=== PATIENT | female | born 1970 | race Caucasian/White ===

== ENCOUNTER 2018-10-24 09:21 | Day surgery (SDC) | payer OTHER ==
[2018-10-24] VITALS (8 sets, daily range): BP systolic 107–124; BP diastolic 59–77; PULSE 70–90; RESP 14–19; Ht 157.5 cm; Wt 100.0 kg
[~2018-10-24] VITALS: Ht 157.5 cm; Wt 100.0 kg
[~2018-10-24 09:21] MED LIST: FERR-55 PO; LANT3I SC; LISI-313 PO; MELO15TA30 PO; METF850T13 PO; OMEP40CA6 PO
[2018-10-24] MEDS ORDERED: CEFAZOLIN 2 GM/50 ML (PMX) 50 ML IVPB ONE (10:00)
[2018-10-24] MEDS ORDERED: METF100010 PO (10:00)
[2018-10-24] MEDS ORDERED: GLIP5TAB13 PO (10:01)
[2018-10-24] MEDS ORDERED: INSU100I33 SC (10:01)
[2018-10-24] MEDS ORDERED: HYDR200T39 PO (10:02)
[2018-10-24] MEDS ORDERED: GABA300C16 PO (10:03)
[2018-10-24] MEDS ORDERED: FOLI-49 PO (10:04)
[2018-10-24] MEDS ORDERED: DULO30CA47 PO (10:04)
[2018-10-24] MEDS ORDERED: DOCU100T PO (10:04)
[2018-10-24] MEDS ORDERED: LISI10TA2 PO (10:05)
[2018-10-24] MEDS ORDERED: BUPIVACAINE 0.5% (SDV) 30 ML INJ ONE ×2 (11:14→11:51)
--- NOTE | 2018-10-24 11:27 | HPN ---
Date/Time of Note Date/Time of Note DATE: 10/24/18 TIME: 11:27 Interval H&P Admission Note Pt. seen H&P reviewed: No system changes IKER SUE DPM October 24, 2018 11:27
--- NOTE | 2018-10-24 11:33 | PREAC ---
Date/Time of Note Date/Time of Note DATE: 10/24/18 TIME: 11:30 Anesthesia Eval and Record Evaluation Time Pre-Procedure Interview DATE: 10/24/18 TIME: 11:30 Age 47 Sex female NPO: 8 hrs Preoperative diagnosis Bilat Ingroin nails Planned procedure Bilat partial nail avulsion Past Medical History Past Medical History: Includes Cardio: HTN, Dyslipidemia Endo: Diabetes GI: Morbid obesity Surgery & Anesthesia Issues No known issue Meds Anticoagulation: No Beta Maria [place] within 24 hr: No Reason Beta Maria Del Carmen not given: Pt. not on B-Maria Del Carmen Reported Medications Lisinopril* (Lisinopril*) 10 Mg Tablet, 10 MG PO DAILY, #30 TAB 10/24/18 Docusate Sodium* (Dok*) 100 Mg Tablet, 100 MG PO BID, #60 CAP 10/24/18 Folic Acid* (Folic Acid*) 1 Mg Tablet, 1 MG PO DAILY, TAB 10/24/18 Duloxetine Hcl* (Duloxetine Hcl*) 30 Mg Capsule.dr, 30 MG PO DAILY, #30 CAP 10/24/18 Gabapentin* (Gabapentin*) 300 Mg Capsule, 300 MG PO TID, #90 CAP 10/24/18 Hydroxychloroquine Sulfate* (Hydroxychloroquine Sulfate*) 200 Mg Tablet, 200 MG PO BID, TAB 10/24/18 Insulin Glargine,Hum.rec.anlog (Basaglar Kwikpen U-100) 100 Unit/1 Ml Insuln.pen, 35 UNIT SC QHS, EA 10/24/18 Glipizide* (Glipizide*) 5 Mg Tablet, 5 MG PO BID, TAB 10/24/18 Metformin Hcl* (Metformin Hcl*) 1,000 Mg Tablet, 1000 MG PO WITH BREAKFAST DINNE, #60 TAB 10/24/18 Discontinued Reported Medications Lisinopril* (Lisinopril*) 5 Mg Tablet, PO DAILY, TAB 04/15/15 Ferrous Sulfate* (Ferrous Sulfate*) 325 Mg Tablet, 325 MG PO DAILY, TAB 04/15/15 Meloxicam* (Mobic*) 15 Mg Tablet, 15 MG PO DAILY, TAB 04/15/15 Omeprazole* (Omeprazole*) 40 Mg Capsule.dr, 40 MG PO DAILY, CAP 04/15/15 Insulin Glargine* (Lantus*) 100 Unit/Ml Soln, 30 UNIT SC DAILY, EA 04/15/15 Metformin Hcl* (Metformin Hcl*) 850 Mg Tablet, 850 MG PO BID, TAB 04/15/15 Meds reviewed: Yes Allergies Coded Allergies: No Known Allergies (Verified Allergy, Mild, 10/24/18) Allergies Reviewed: Yes Labs/Studies Labs Reviewed: Reviewed by anesthesiologist test: Negative Pre-procedure Exam Last vitals Vital Signs Date Temp Pulse Resp B/P (MAP) Pulse Ox O2 O2 Flow FiO2 Time Delivery Rate 10/24/18 97.5 83 16 120/68 99 Room Air 11:23 (85) Airway: Adequate mouth opening, Adequate thyromental dist Mallampati: Mallampati II Teeth: Normal Lung: Normal Heart: Normal ASA Physical Status ASA physical status: 3 Emergency: None Planned Anesthetic General/MAC: LMA Planned Pain Management Parenteral pain med, Local by surgeon Pre-operative Attestations Prior to commencing anesthesia and surgery, the patient was re-evaluated, there was verification of: *The patient's identity *The results of appropriate recent lab work and preoperative vital signs *The above evaluation not changing prior to induction *Anesthetic plan, risk benefits, alternative and complications discussed with patient/family; questions answered; patient/family understands, accepts and wishes to proceed. TERRANCE NATION MD October 24, 2018 11:33
[2018-10-24] MEDS ORDERED: FENTAnyl 50 MCG/ML VIAL ONE (11:45)
[2018-10-24] MEDS ORDERED: MIDAZOLAM 1 MG/ML 2 ML INJ ONE (11:45)
[2018-10-24] MEDS ORDERED: LIDOCAINE 2% (MDV) 20 ML INJ ONE (11:51)
--- NOTE | 2018-10-24 12:24 | PAC ---
Date/Time of Note Date/Time of Note DATE: 10/24/18 TIME: 12:24 Post-Anesthesia Notes Post-Anesthesia Note Last documented vital signs Vital Signs Date Temp Pulse Resp B/P (MAP) Pulse Ox O2 O2 Flow FiO2 Time Delivery Rate 10/24/18 97.5 83 16 120/68 99 Room Air 11:23 (85) Activity: WNL Respiratory function: WNL Cardiovascular function: WNL Mental status: Baseline Pain reasonably controlled: Yes Hydration appropriate: Yes Nausea/Vomiting absent: Yes MIRNA MONGE October 24, 2018 12:24
[2018-10-24] MEDS ORDERED: FENTAnyl 50 MCG/ML VIAL IV PRN ×2 (12:30)
[2018-10-24] MEDS ORDERED: ONDANSETRON 4 MG INJ IV PRN (12:30)
[2018-10-24] MEDS ORDERED: hydrALAzine 20 MG INJ IV PRN (12:30)
[2018-10-24] MEDS ORDERED: LABETALOL HCL 20MG INJ IV PRN (12:30)
[2018-10-24] MEDS ORDERED: METOCLOPRAMIDE 10 MG INJ IV PRN (12:30)
[2018-10-24] MEDS ORDERED: MEPERIDINE 25 MG INJ IV PRN (12:30)
[2018-10-24] MEDS ORDERED: HYDROmorphONE 1 MG/5 ML IV SYRINGE IV PRN ×2 (12:30)
--- NOTE | 2018-10-24 12:35 | SIPON ---
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
--- NOTE | 2018-10-24 12:35 | OPR ---
Date/Time of Note Date/Time of Note DATE: 10/24/18 TIME: 12:35 Operative Report Procedure Date: October 24, 2018 Preoperative Diagnosis Ingrown toenail right hallux Ingrown toenail left hallux Paronychia right hallux Paronychia left hallux Toe pain Exostosis right hallux Exostosis left hallux Postoperative Diagnosis Same Operation/Procedure Performed Partial nail avulsion right hallux Partial nail avulsion left hallux Surgical matricectomy right hallux Surgical matricectomy left hallux Exostectomy right hallux Exostectomy left hallux Surgeon see signature line Stars Analytical Lead none Anesthesia Type: general Estimated Blood Loss: minimal Transfusion none Specimen Toenail, matrix, bone bilateral hallux Grafts/Implants none Complications none Pt Condition Post Procedure: stable Disposition: PACU Indications Pleasant 47-year-old female patient suffering from chronic recurrent ingrown toenail of bilateral big toes. Recommended procedure is surgical matricectomy along with partial nail avulsion and exostectomy bilateral toes. Risks and complications of this type of surgery was discussed with patient in great detail. Risks and complications discussed include but are not limited to postoperative infection, postoperative pain and disability, chronic pain and disability, failure of surgery to correct the problem, recurrence of problem, need for additional surgical procedures, deep venous thrombosis, limb loss and loss of life. Patient understands and agrees to the procedure. An informed consent was obtained, signed and placed in the chart. No guaranteed warranty was given implied as to the outcome of the procedure either verbal or written form. Procedure Description Patient was seen in the preoperative area. Opportunity was given to patient to ask questions and all questions were answered. Patient was then taken to the operating room and was placed on the operating table in the supine position. Patient was placed under general anesthesia by the anesthesiologist. Bilateral feet were scrubbed, prepped and draped in the usual aseptic manner. Attention was directed to the right foot first toe. A tourniquet was applied to the big toe. A [place] elevator was used to free the toenail on the medial lateral nail plate from the nail bed all the way proximal to the hyponychium. The double-action bone cutter was used to cut both the medial lateral nail plate. Both plates were then removed and passed to the back table. Using a #15 blade, I made 2 incisions on the proximal medial and the other on the proximal lateral hyponychium on the leg down to the matrix. Bleeders were cauterized as necessary. The nail matrix was then sharply excised both on the proximal medial and proximal lateral aspect. I used a hand rasp to remove the bony exostosis that was present on both the proximal medial and proximal lateral and the base of the distal phalanx of the hallux. Copious amounts of sterile normal saline was used for irrigation. Next, both incisions were closed using simple suture technique and 5-0 Monocryl suture. Same exact procedure was done on the left hallux. I injected both big toes with 5 cc of 0.5% Marcaine plain. Sterile dressing was applied to both the right and left big toes. The patient tolerated procedure and anesthesia well. She was transferred to recovery room with vital signs stable and vascular status intact to both feet. The patient will be discharged home after postoperative monitoring. Postoperative orders have been written. Patient may do partial weightbearing on both feet with postop shoes and crutches. One-week follow-up in my office. IKER SUE DPM October 24, 2018 12:35
[2018-10-24] MEDS ORDERED: HYDROCODONE/APAP (10/325) TAB PO ONE (13:30)
== END 2018-10-24 14:23 | disposition home or self-care (01) ==
LOC: SDS 09:21
PROVIDERS: ATTEND Podiatrist Foot & Ankle Surgery
DX: L60.0 Ingrowing nail (principal); L03.032 Cellulitis of left toe; L03.031 Cellulitis of right toe; D16.32 Benign neoplasm of short bones of left lower limb; D16.31 Benign neoplasm of short bones of right lower limb; E11.9 Type 2 diabetes mellitus without complications; I10 Essential (primary) hypertension; Z79.84 Long term (current) use of oral hypoglycemic drugs; Z79.4 Long term (current) use of insulin
CPT/HCPCS: 11750; 28124; 82962; 88304; J0690; J2250; J3010; Z7512; Z7610